=== PATIENT | female | born 2005 | race Caucasian/White ===

== ENCOUNTER 2025-07-19 13:17 | Emergency (ER) | payer OTHER, SELFPAY ==
--- NOTE | ~2025-07-19 | XR_ITS ---
EXAMINATION: XR WRIST 3 OR MORE VIEWS RIGHT HISTORY: old fracture check fracture COMPARISON: There are no prior studies available for comparison. FINDINGS: Four casted views of the right wrist are submitted. The fiberglass cast obscures fine bony detail. No definite fracture is seen, although evaluation is extremely limited due to the overlying cast material. The joint spaces are preserved. The soft tissues are unremarkable. XR/XR wrist RT min 3V IMPRESSION: No definite fracture is seen, although evaluation is extremely limited by the overlying cast material. Electronically signed by: Emmett Hu MD 07/19/2025 02:42 PM EDT
[2025-07-19 14:09] VITALS: BP 109/73; PULSE 79; RESP 18; TEMP 36.5; O2SAT 100; BMI 18.5
--- NOTE | 2025-07-19 14:09 | ED_ITS ---
HPI - Extremity Injury (Upper) General Chief Complaint: Extremity Injury, Upper Stated Complaint: needs wrist xray Time Seen by Provider: 07/19/25 17:48 Source: patient, RN notes reviewed and old records reviewed Mode of arrival: ambulatory Limitations: no limitations History of Present Illness ED Provider: Janak NATARAJAN narrative: 20-year-old female presents for evaluation of a wrist injury. The patient reports that she fractured her right wrist in March She reports being diagnosed with a scaphoid fracture. She had a cast placed the following day and then went to [facility] for an marketing operations intern ship. She returned and is still wearing the cast that she has had for the last 11 weeks She called Orthopedics who referred her to get a repeat x-ray and she will be seen in the office Denies any complaints or concerns, she has no pain and no further injuries Related Data Allergies Allergy/AdvReac Type Severity Reaction Status Date / Time amoxicillin Allergy Rash Verified 07/19/25 14:10 Penicillins (PCN) Allergy Rash Verified 07/19/25 14:10 Review of Systems Constitutional: Constitutional: Denies chills, Denies fever(s) and Denies headache(s) ENT: Denies headache(s) Musculoskeletal: Musculoskeletal: Denies arthralgias, Denies joint swelling, Denies limited range of motion and Reports other (Cast on right wrist) Integumentary/Breasts: Skin/Breast: Denies wounds Neurologic: Denies headache(s) [facility] Social History Social History Advance Directives: No Advance Directives Information Provided: No Physical Exam Vital Signs: Vital Signs: Last Vital Signs Temp 97.7 F 07/19/25 14:09 Pulse 79 07/19/25 14:09 Resp 18 07/19/25 14:09 BP 109/73 07/19/25 14:09 Pulse Ox 100 07/19/25 14:09 O2 Del Method Room Air 07/19/25 14:09 BMI result Body Mass Index 18.5 Const: General: healthy appearing, comfortable, no acute distress, alert and awake Nutritional Appearance: well nourished Orientation/consciousness: patient oriented x3 HEENT: Head: Yes normocephalic and Yes atraumatic Neck: Neck: Yes full ROM Resp: Effort & Inspection: normal respiratory effort, able to speak in complete sentences and not labored Skin: General skin exam: elasticity normal Neuro: General: patient oriented x3 Cranial nerves: Yes Bilaterally intact EOM present Cognition (Neuro): normal cognition Extrem: Other: There is a thumb spica cast to the right upper extremity. The patient is able to wiggle all digits of the right hand except for the thumb. No discoloration noted Course Course Course Narrative: This is an RME: Additional HPI, ROS, PE not included below will be deferred to primary provider. RME assessment and note performed by: Mahi Bolaños PA-C This is a [id number]-female, with a history of scaphoid fracture, who presents emergency department for repeat x-ray of her wrist. Patient reports that she fractured her scaphoid 11 weeks ago and then went to [facility]. Reports that she was told to have repeat imaging over there. They are attempting to obtain records however in the meantime she needs to see orthopedics here to have the cast removed however [facility] advised her to come to the emergency room for repeat x-rays. Plan: xray Medical Decision Making Medical Decision Making MDM Narrative: 20-year-old female presents for evaluation of follow up to a right wrist injury. Her x-ray today shows no obvious fracture but the x-ray is obscured due to the overlying fiberglass cast. The patient is already working on getting follow up with Orthopedics. She will call in the morning to schedule follow up as she was instructed to call after her x-ray was performed. Differential Diagnosis Differential Diagnoses: The differential diagnosis associated with the presentation includes Scaphoid fracture Wrist sprain Contusion Wrist fracture Independent Interpretation I performed an independent interpretation of an: Plain X-Ray (Agree with Radiology interpretation, no obvious fracture) Radiology Impression Discussion of test interpretation with radiology: I have reviewed the radiologist's reading. Radiologist Impression: Ordering Physician: Generic ED Physician Date of Service: 07/19/25 Procedure(s): XR wrist RT min 3V Accession Number(s): [id number] cc: Generic ED Physician; Physician,Unknown ~ Reason for Exam: old fracture check fracture EXAMINATION: XR WRIST 3 OR MORE VIEWS RIGHT HISTORY: old fracture check fracture COMPARISON: There are no prior studies available for comparison. FINDINGS: Four casted views of the right wrist are submitted. The fiberglass cast obscures fine bony detail. No definite fracture is seen, although evaluation is extremely limited due to the overlying cast material. The joint spaces are preserved. The soft tissues are unremarkable. XR/XR wrist RT min 3V IMPRESSION: No definite fracture is seen, although evaluation is extremely limited by the overlying cast material. Electronically signed by: Emmett Hu MD 07/19/2025 02:42 PM EDT Discharge Plan Discharge Clinical Impression: Injury of right wrist Patient Disposition: Home, Self-Care Instructions: Scaphoid Fracture (ED) Additional Instructions: Your x-ray today does not show any definitive fracture, however small details can be obscured by the overlying cast. Call orthopedics tomorrow to schedule your follow-up appointment Return for new or worsening symptoms Ordering Physician: Generic ED Physician Date of Service: 07/19/25 Procedure(s): XR wrist RT min 3V Accession Number(s): [id number] cc: Generic ED Physician; Physician,Unknown ~ Reason for Exam: old fracture check fracture EXAMINATION: XR WRIST 3 OR MORE VIEWS RIGHT HISTORY: old fracture check fracture COMPARISON: There are no prior studies available for comparison. FINDINGS: Four casted views of the right wrist are submitted. The fiberglass cast obscures fine bony detail. No definite fracture is seen, although evaluation is extremely limited due to the overlying cast material. The joint spaces are preserved. The soft tissues are unremarkable. XR/XR wrist RT min 3V IMPRESSION: No definite fracture is seen, although evaluation is extremely limited by the overlying cast material. Electronically signed by: Emmett Hu MD 07/19/2025 02:42 PM EDT Referrals: [facility] [place] Orthopedic Surgeons [Provider Group] Referral Note: old scaphoid fracture Print Language: Kosovan
--- OUTSIDE RECORDS SUMMARY | 2025-07-19 17:51 | XMS_ITS | Encounter Summary ---
Author Organization [facility] iance Address [address] [place] [address] Care Team Providers Care Title Checker Name Role Phone Genesis Courtney MD Primary Care Provider [phone] Genesis Courtney MD Unavailable [phone] Reason for Visit * Reason Onset Date Comments Imm/Inj 03/25/2025 Encounter Details Date Type Department Care Team (Late st Contact Info) Description 03/25/2025 Telephone [facility] [place] [address] Genesis Courtney MD [address] [place] [id number] Imm/Inj Social History Tobacco Use Types Packs/Day Years Used Date Smoking Tobacco: Never Smokeless Tobacco: Never Alcohol Use Standard Drinks/Week Comments Never 0 (1 standard drink = 0.6 oz pur e alcohol) Comments Unknown Sex and Gender Information Value Date Recorded Sex Assigned at Not on file Legal Sex Female 8:01 PM EDT Gender Identity Other 03/22/2025 11:14 AM EDT Sexual Orientation Choose not to disclose 2024 11:14 AM EDT documented as of this encounter Miscellaneous Notes * Telephone Encounter - Tiffanie Lee Ann - 03/25/2025 1:36 PM EDT Central Refill Department to complete a benefit analysis for the TDAP Vaccine. The vaccine is covered under the patient???s [facility] medical coverage. Please choose Private documented in this encounter Plan of Treatment Not on file documented as of this encounter Visit Diagnoses Not on filedocumented in this encounter Care Teams Title Checker Relationship Specialty Start Date End Date Genesis Courtney MD [address] [facility] [place] [address] PCP - General 01/26/09 Genesis Courtney MD [address] [facility] [place] [address] PCP - Insurance PCP 05/01/18 documented as of this encounter
--- OUTSIDE RECORDS SUMMARY | 2025-07-19 17:51 | XMS_ITS | Clinical Summary ---
Author Organization [email or web address] [facility] Address [address] [place] [address] Care Team Providers Care Circulation Assistant Name Role Phone Unavailable Primary Care Provider Unavailabl e Social History Tobacco Use Types Packs/Day Years Used Date Smoking Tobacco: Never Assessed Comments Unknown Sex and Gender Information Value Date Recorded Sex Assigned at Not on file Legal Sex Female 12:30 PM EST Gender Identity Not on file Sexual Orientation Not on file Plan of Treatment Health Maintenance Due Date Last Done Comments Depression: Screening Annual ly using PHQ-2/9 in Adults 18 yrs or above (or HM Modifier)([facility]) 2022 Hepatitis C Virus Infection in Adolescents and Adults: Screening (or Modifier) ([facility]) 2022 SDOH Screening Reminder: Ayla cabrera for all adults ([facility]) 2022 Tobacco Smoking Cessation: i n Adults excluding Women: Behavioral and Pharmacotherapy Interventions ([facility]) 2022 DTaP/Tdap/Td Vaccines ([facility]) (1 - Tdap) 2023 Cervical Cancer Screenin 1-65 yrs of age (or Modifier) 2025 Cervical Cancer Screening: P ap every 3 yrs pts age 21-65 2025 Cervical Cancer: Pap Screeni ng with Modifier timing ([facility]) 2025 Cervical Cancer: hrHPV alone or with cotesting Pap for Pts 30-65yrs screening every 5yrs ([facility]) 2025 Flu Vaccination: Yearly for ages 18mos through 64 years (or Modifier)([facility]) 05/20/2025 COVID-19 Vaccine Screening: Initial Series and Booster Status ([facility]) (2023- season) 2025 Zoster/Shingles Vaccine Seri es Screening: Adults aged 18+ yrs (or HM Modifiers)([facility]) (1 of 2) 2054 Pneumococcal Vaccination Scr eening: Pts 0-19 & 19-49 yrs of age ([facility]) Aged Out No longer eligible based on patient's age to complete this topic Medical Devices Not on file Insurance [facility]
--- OUTSIDE RECORDS SUMMARY | 2025-07-19 17:51 | XMS_ITS | Encounter Summary ---
Author Organization [facility] iance Address [address] [place] [address] Care Team Providers Care Dag Sprayer Name Role Phone Genesis Courtney MD Primary Care Provider [phone] Genesis Courtney MD Unavailable [phone] Reason for Visit * Reason Comments Other Mom send via fax on 10/21/18 verification of caring for the disabled Encounter Details Date Type Department Care Team (Latest Contact Info) Description 10/21/2018 Brief Documentation [facility] [address] [place] [address] Mikayla Nolasco Other (Mom send via fax on 10/21/18 verifi... Social History Tobacco Use Types Packs/Day Years Used Date Smoking Tobacco: Never Smokeless Tobacco: Never Alcohol Use Standard Drinks/Week Comments Not Asked 0 (1 standard drink = 0.6 oz pur e alcohol) Comments Unknown Sex and Gender Information Value Date Recorded Sex Assigned at Not on file Legal Sex Female 8:01 PM EDT Gender Identity Other 03/22/2025 11:14 AM EDT Sexual Orientation Choose not to disclose 2024 11:14 AM EDT documented as of this encounter Plan of Treatment Not on file documented as of this encounter Visit Diagnoses Not on filedocumented in this encounter Care Teams Dag Sprayer Relationship Specialty Start Date End Date Genesis Courtney MD [address] [place], [place] [id number] PCP - General 01/26/09 Genesis Courtney MD [address] [facility] [place] [address] PCP - Insurance PCP 05/01/18 documented as of this encounter
--- OUTSIDE RECORDS SUMMARY | 2025-07-19 17:51 | XMS_ITS | Clinical Summary ---
Author Organization [facility] Address [address] [address] [place] [phone] Phone Care Team Providers Care Commercial Credit Officer Name Role Phone Genesis Courtney MD Primary Care Provide r Allergies Active Allergy Reactions Criticality Noted Date Comments Penicillins Rash Low 05/02/2021 Social History Tobacco Use Types Packs/Day Years Used Date Smoking Tobacco: Never Assessed Education Answer Date Recorded Are you interested in more education? Not on julia e 02/14/2023 Are you concerned about learning? Not on file 02/14/2023 No 02/14/2023 No 02/14/2023 Digital Access Answer Date Recorded No 03/17/2023 No 03/17/2023 No 03/17/2023 Reliable internet access at home? Not on file 03/17/2023 Device with a working camera? Not on file Comments Unknown Sex and Gender Information Value Date Recorded Sex Assigned at Not on file Legal Sex Female 2:15 PM EDT Gender Identity Not on file Sexual Orientation Not on file Last Filed Vital Signs Vital Sign Reading Time Taken Comments Blood Pressure 111/73 05/02/2021 1:57 PM EDT Pulse 107 05/02/2021 1:57 PM EDT Temperature - - Respiratory Rate - - Oxygen Saturation 97% 05/02/2021 1:57 PM EDT Inhaled Oxygen Concentration - - Weight 46.9 kg (103 lb 6.3 oz) 05/02/2021 1:57 P M EDT Height 162 cm (5' 3.78 ) 05/02/2021 1:57 PM EDT Body Mass Index 17.87 05/02/2021 1:57 PM EDT Plan of Treatment Health Maintenance Due Date Last Done Comments DEPRESSION SCREENING 2016 SMOKING Hx and SMOKELESS TOBACCO SCREENING 2017 CHLAMYDIA SCREENING 2020 MENINGOCOCCAL VACCINES (B) (1 of 2 - Standard) 2020 ADOLESCENT UNIVERSAL LIPID SCREENING 2021 HEPATITIS C SCREENING 2022 HIV ONE-TIME SCREENING (18-65 YEARS) 2022 COVID-19 VACCINE ( - season) 2024 03/13/2021, 02/20/2021 PAP SMEAR 2025 INFLUENZA VACCINE (#1) 2025 , 08/03/2019, 08/03/2011 Adult Td,Tdap Booster 06/06/2025 06/06/2015 COMBINED DTaP,Tdap,Td (7 - Td or Tdap) 06/06/2025 06/06/2015, 05/20/2008, 12/25/2005, Additional history exists PNEUMOCOCCAL VACCINES (0-49 years) Aged Out 05/10/2005, 02/15/2005, 2004, Additional history exists No longer eligible based on patient's age to complete this topic HIB VACCINES Completed 12/25/2005, 01/19, 2004, Additional history exists HEPATITIS A VACCINES Completed 06/19/2017, 06/12/20 16 MMR VACCINES Completed 06/19/2017, 06/21, 12/17/2005 HPV VACCINES Completed 12/18/2018, 06/18/2018 MENINGOCOCCAL VACCINES ([facility]) Completed 11/22/2020, 06/27/2015 Medical Devices Not on file Insurance [facility] [employer] [facility] [employer] Care Teams Commercial Credit Officer Relationship Specialty Start Date End Date Genesis Courtney MD [facility] [facility] [place] [address] PCP - General Pediatrics 04/04/21 Additional Source Comments The information contained in this document represents components of the legal health record. It is not the complete legal health record.[facility]
--- OUTSIDE RECORDS SUMMARY | 2025-07-19 17:51 | XMS_ITS | Encounter Summary ---
Author Organization [facility] iance Address [address] [place] [address] Care Team Providers Care Housing Liaison Name Role Phone Genesis Courtney MD Primary Care Provider [phone] Genesis Courtney MD Unavailable [phone] Reason for Visit * Reason Comments Form Request verification for car ing for the disabled Encounter Details Date Type Department Care Team (Latest Contact Info) Description 10/22/2019 Brief Documentation Enc [facility] [place] [address] Teri Anderson(Inactive) Form Request (verification for caring for ... Social History Tobacco Use Types Packs/Day Years [...] on filedocumented in this encounter Care Teams Housing Liaison Relationship Specialty Start Date End Date Genesis Courtney MD [address] [place] [phone] PCP - General 01/26/09 Genesis Courtney MD [facility] [facility] [place] [address] PCP - Insurance PCP 05/01/18 documented as of this encounter
--- OUTSIDE RECORDS SUMMARY | 2025-07-19 17:51 | XMS_ITS | Clinical Summary ---
Author Organization [facility] iance Address [address] [facility] [place] [address] Care Team Providers Care Food And Beverage Assistant Name Role Phone Genesis Courtney MD Primary Care Provider Genesis Courtney MD Unavailable [phone] Allergies Active Allergy Reactions Criticality Noted Date Comments Amoxicillin Rash Medium 10/02/2010 Medications No known medications Active Problems Problem Noted Date Diagnosed Date Injury of right wrist 05/02/2025 Assessment & Plan (05/02/2025 8:21 PM EDT): Patient is presenting 1 day s/p FOOSH with worsening pain to R wrist along the ulnar border. [] R wrist XR > Hairline lucency scaphoid waist may be incidental trabeculation pattern, though if there is concern for scaphoid fracture, consider MRI. [] Urgent evaluation by orthopedic surgery - really appreciate care of patient prior to trip tomorrow! Patient transported to orthopedic clinic. Facial laceration 05/02/2025 Assessment & Plan (05/02/2025 8:17 PM EDT): Laceration to left eyebrow, c/d/I with steri strips intact. TDAP UTD. Too late for Dermabond. Will likely heal by secondary intention. Wears glasses 05/08/2012 Family conflict 06/21/2009 Overview (05/31/2014): 05/31/14: Parents . Sees counselor at [place], weekly sessions. [facility] Linda Zuluaga, Mental Health Counselor. Resolved Problems Problem Noted Date Diagnosed Date Resolved Date Problems related to inapprop riate diet and eating habits 12/13/2015 06/18/2018 Underimmunization status 06/06/2015 Overview (06/06/2015): Will return on June 27, 2015 for Menactra. Will schedule for Hep A and HPV at that time. Needs booster MMR, dose 2 not valid 06/02/2015 06/18/2018 Backache 01/09/2014 06/18/2018 Tonsillitis 01/06/2012 06/19/2017 Other behavioral problems 05/30/2008 Overview (05/30/2008): Uncooperative at times. Esophageal reflux 04/15/2008 01/26/2009 Feeding difficulties and mismanagement 12/17/2005 09/25/2010 Overview (12/17/2005): Does not tolerate whole foods, prefers puree. Encounters Date Type Department Care Team Description 05/03/2025 Telephone [facility] [address] [place] [address] Beatris Collins E Letter 05/02/2025 3:00 PM EDT Office Visit [facility] [place] [address] Rimma Dyer MD Closed nondisplaced fracture of middle third of scaphoid bone, unspecified laterality, initial encounter (Primary Dx) 05/02/2025 1:25 PM EDT - 05/02/2025 11:59 PM EDT Hospital Encounter [facility] [place] [address] Injury of right wrist, initial encounter Discharge Disposition: Home 05/02/2025 1:00 PM EDT Office Visit [facility] [address] [place] [address] Ngozi Woodson MD Injury of right wrist, initial encounter (Primary Dx); Facial laceration, initial encounter 05/02/2025 Travel 05/02/2025 Nurse Triage [facility] [address] [place] [address] Laureen Campos RN Wrist/forearm Injury 04/29/2025 10:41 AM EDT - 04/29/2025 11:59 PM EDT Hospital Encounter [facility] Lab - [facility] [address] [place] [address] Routine general medical examination at a health care facility Discharge Disposition: Home 04/29/2025 10:40 AM EDT Office Visit [facility] [address] [place] [address] Odessa Dietz APRN Routine general medical examination at a health care facility (Primary Dx); Marijuana use; Routine screening for STI (sexually transmitted infection) 04/29/2025 Results Follow-Up [facility] [address] [place] [address] Odessa Dietz APRN 04/29/2025 Telephone [facility] [address] [place] [address] Beatris Collins E Well Child 04/29/2025 Travel 04/28/2025 Brief Documentation Enc [facility] [address] [place] [address] Guicho Wheat Confirming Appointment from Last 3 Months Immunizations Immunization Administration Dates Next Due DTAP/HIB 12/25/2005 DTaP age 2 MO to <7 Yrs 05/20/2008,2004 DTaP-HEP B-IPV AGE 6WKS - <7YRS 01/29/2005,07/02 HIB 4 Dose Schedule (PRP-T) 02/07/2005, 4,2004 HPV-9 12/18/2018,06/18/2018 12/17/2018 Hep A Pedi/Adolescent 2 Doses AGE 0806/19/2017, Hep B Pedi/Adol 3 Dose Less than age 20 2004 Hib (Hboc) 02/07/2005,2004,2004 INFLUENZA VIRUS VAC QUAD AMRIK E INTRANASAL 2-<50YRS 08/03/2011 IPV 06/01/2008,2004 Influenza Virus Quad Presv F ree Vacc 6 Mo and Older, IM 02/06/2022,10/09/2020,08/03/2019 MMR 06/19/2017,07/12/2008,12/17/2005 Menactra (Meningococcal) 11/22/2020,06/27/2015 Pneumococcal Vaccine, Conjugate V7 05/10,02/15/2005,2004,07/02 Tdap 03/28/2025 Tdap (adacel) 06/06/2015 Varivax (chicken pox vaccine) 07/05/2008, 005 Family History Medical History Relation Comments No Known Family History Unknown Relation Status Comments Unknown Social History Tobacco Use Types Packs/Day Years [...] not to disclose 2024 11:14 AM EDT Last Filed Vital Signs Vital Sign Reading Time Taken Comments Blood Pressure 114/71 04/29/2025 10:52 AM EDT Pulse 82 03/30/2021 3:39 PM EDT Temperature 36.6 C (97.9 F) 05/02/2025 1:02 PM EDT Respiratory Rate - - Oxygen Saturation 100% 03/30/2021 3:39 PM EDT Inhaled Oxygen Concentration - - Weight 45.6 kg (100 lb 9.6 oz) 05/02/2025 1:02 P M EDT Height 162 cm (5' 3.78 ) 04/29/2025 10:52 AM EDT Body Mass Index 17.39 04/29/2025 10:52 AM EDT Plan of Treatment Health Maintenance Due Date Last Done Comments Contraceptive Care Screening 2004 HIV SCREENING 2017 MENINGOCOCCAL B VACCINE SERIES (1 of 2 - Standard) 2020 HEP C SCREEN 2022 COVID-19 Vaccine ( season) 2025 11/01/2021, 03/13/2021, 02/20/2021 INFLUENZA VACCINE (#1) 2025 , 10/09/2020, 08/03/2019, Additional history exists CHLAMYDIA SCREEN 04/29/2026 04/29/2025, 02/06/2022 PHYSICAL EXAM 04/29/2026 04/29/2025, 04/, 11/14/2020, Additional history exists SDOH Screening 04/29/2026 04/29/2025 AWQ Questionnaire 05/02/2026 05/02/2025, 04/29/2025 ORAL HEALTH SCREENING 05/03/2026 05/03/2025 , 05/03/2025, 05/02/2025, Additional history exists PAP SMEAR 04/29/2028 04/29/2025 HEALTH CARE PROXY 04/29/2030 04/29/2025 LIPID SCREENING 04/29/2030 04/29/2025, 05/31/2014 TETANUS VACCINE (8 - Td or Tdap) 03/28/2035 03/28/2025, 06/06/2015, 05/20/2008, Additional history exists ZOSTER VACCINE (1 of 2) 2054 PNEUMOCOCCAL VACCINE SERIES (< 65) Aged Out 05/10/2005, 02/15/2005, 2004, Additional history exists No longer eligible based on patient's age to complete this topic HPV VACCINE SERIES Addressed 12/18/2018, 0 06/18/2018, 06/19/2017 (Discussed/Declined (reset due date to next due date per frequency)) Overridden with the intention of not completing the topic Procedures Procedure Name Priority Date/Time Associated Diagnosis Comments CLTX CARPAL BONE FX W/O MANJ EACH BONE Routine 05/13/2025 12:17 PM EDT Closed nondisplaced fracture of middle third of scaphoid bone, unspecified laterality, initial encounter XR WRIST RIGHT MINIMUM 3 VIEWS Urgent 05/02/2025 1:48 PM EDT Injury of right wrist, initial encounter HC HPV Routine 04/29/2025 12:54 PM EDT Routine general medical examination at a health care facility Routine screening for STI (sexually transmitted infection) CHLAMYDIA GC NAAT Routine 04/29/2025 12: 00 PM EDT Routine screening for STI (sexually transmitted infection) HC LIPID PANEL Routine 04/29/2025 11:56 AM EDT Routine general medical examination at a health care facility CYTOPATH, C/V, THIN LAYER Routine 04/29/2025 12:00 AM EDT Routine general medical examination at a health care facility Routine screening for STI (sexually transmitted infection) from Last 3 Months Results * XR Wrist Right minimum 3 views (05/02/2025 1:48 PM EDT) Anatomical Region Laterality Modality Upper Extremities Digital Radiog sandro 05/02/2025 2:16 PM EDT Impressions 05/02/2025 2:20 PM EDT Hairline lucency scaphoid waist may be incidental trabeculation pattern, though if there is concern for scaphoid fracture, consider MRI. Results flagged in epic. Reviewed and Electronically Signed By: Darryl Baez MD Signed Date and Time: 05/02/2025 2:20 PM Narrative 05/02/2025 2:20 PM EDT Exam: Right wrist, 3 views Indication: pain s/p fall, concerned about fracture Comparison: none Findings: Bones and Joints: Hairline lucency scaphoid waist. Bones and joints are otherwise unremarkable. Soft Tissues: Unremarkable. Procedure Note Darryl Baez MD - 05/02/2025 Exam: Right wrist, 3 views Indication: pain s/p fall, concerned about fracture Comparison: none Findings: Bones and Joints: Hairline lucency scaphoid waist. Bones and joints areotherwise unremarkable. Soft Tissues: Unremarkable. IMPRESSION: Hairline lucency scaphoid waist may be incidental trabeculation pattern,though if there is concern for scaphoid fracture, consider MRI. Results flagged in epic. Reviewed and Electronically Signed By: Darryl Baez MD Signed Date and Time: 05/02/2025 2:20 PM us Ngozi Woodson MD RAD XR ORDERABLES Final Resul t * HUMAN PAPILLOMAVIRUS (HPV) (04/29/2025 12:54 PM EDT) HUMAN PAPILLOMAVIRUS Negative for HPV High Risk mRNA (HPV types: 16,18,31,33, 35,39,45,51, 52,56,58,59, 66,68) [facility] THINPREP CYTOLOGY TECHNIQUE / Unknown 04/29/2025 12:54 PM EDT 04/29/2025 9:36 PM EDT us Odessa Dietz FORENSIC BALLISTICS EXPERT [place]CRO[place] [address], [place] * CHLAMYDIA GC NAAT (04/29/2025 12:00 PM EDT) NEISSERIA GONORRHOEAE NAAT Negative for Neisseria gonorrhoeae rRNA. [facility] CHLAMYDIA TRACHOMATIS NAAT Negative for Chlamydia trachomatis rRNA. [facility] URINE SPECIMEN / Unknown 04/29/2025 12:00 PM EDT 04/29/2025 1:51 PM EDT us Odessa Dietz FORENSIC BALLISTICS EXPERT MICROBIOLOGY Final Result Performing Organization Address City/[facility]/ZIP Co de Phone Number [address] [address], [place] * Lipid Panel (04/29/2025 11:56 AM EDT) Cholesterol 180 0 - 239 mg/dL [facility] TRIGLYCERIDES 62 0 - 150 mg/dL [facility] HIGH DENSITY LIPOPROTEIN 81 40 - 60 mg/dL [facility] LABORATORY [facility] LOW DENSITY LIPOPROTEIN DIRECT 101 0 - 189 mg/dL [facility] 04/29/2025 11:5 6 AM EDT 04/29/2025 1:09 PM EDT us Odessa Dietz FORENSIC BALLISTICS EXPERT LABORATORY Final Result [address] [address], [place] * CYTOPATH, C/V, THIN LAYER (04/29/2025 12:00 AM EDT) PATHOLOGY REPORT SPEC #: [id number] RECD: 04/29/25 STATUS: SOUCami SP TYPE: ELECTRON MICROSCOPIST RENEE: 04/29/25- SUB DR: KARRI DIETZ FORENSIC BALLISTICS EXPERT ENTERED: 04/29/25 ORDERED: [id number] Performed at [place] [address] >>FINAL DIAGNOSIS<< ENDOCERVIX/EXOCERV IX (THINPREP PAP): NEGATIVE FOR INTRAEPITHELIAL LESION OR MALIGNANCY. SATISFACTORY FOR EVALUATION, TRANSFORMATION ZONE COMPONENT IS PRESENT. The Pap smear is a screening test in which both false positive and false negative results can occur. Thus, it should not be the sole means to diagnosis or exclude malignancy or a premalignant condition. Diagnosis by: KENDRICK NOGUEIRA CTASCP Cytology patient information Cancer screening? Y ThinPrep ONLY? Y Number of slides? 1 Clinical diagnosis? SCREENING PAP First day LMP? 03/31/25 Regular cycle? Y Current ELECTRON MICROSCOPIST exam? VAGINITIS Reason for PAP: SCREENING Patient insurance: Screened by: [employer] screener name: Kendrick Nogueira CT(ASCP) PATH PROCEDURES CYTOPATHOLOGY CERVICAL OR VAGINAL, THIN PREP TC ONLY Signed (signatu re on file) KENDRICK NOGUEIRA CTASCP 05/03/25 -- Endocervix/Exocer vix 04/29/2025 04/29/2025 8:50 PM EDT Odessa Dietz FORENSIC BALLISTICS EXPERT PATHOLOGY Final Result from Last 3 Months Insurance [facility] Advance Directives Documents on File Type Date Recorded Patient Belt Molder Expl anation HC PROXY 04/29/2025 12:15 PM HC Proxy * No Code Status (Latest Code Status on File) Date Activated Date Inactivated Comments 2004 10:54 AM 2004 11:54 AM Care Teams Food And Beverage Assistant Relationship Specialty Start Date End Date Genesis Courtney MD [address] [place] [id number] PCP - General 01/26/09 Genesis Courtney MD [address] [place] [id number] PCP - Insurance PCP 05/01/18
--- OUTSIDE RECORDS SUMMARY | 2025-07-19 17:51 | XMS_ITS | Clinical Summary ---
Author Organization [facility]ated within [facility] Address [address] [place] [address] Care Team Providers Care Attending Physician Name Role Phone Unavailable Primary Care Provider Unavailabl e Allergies Active Allergy Reactions Criticality Noted Date Comments Penicillin G 01/09/2014 Hives Medications Dicyclomine HCl 20 MG Tablet Take 1 Tablet by mouth 4 (four) times a day (with meals and nightly) 20 Tablet 1 11/23/2021 Active Active Problems Problem Noted Date Diagnosed Date Back pain 01/09/2014 Social History Tobacco Use Types Packs/Day Years Used Date Smoking Tobacco: Never Assessed Comments Unknown Sex and Gender Information Value Date Recorded Sex Assigned at Not on file Legal Sex Female 11:16 PM EDT Gender Identity Not on file Sexual Orientation Not on file Last Filed Vital Signs Vital Sign Reading Time Taken Comments Blood Pressure 118/76 11/23/2021 10:04 PM EST Pulse 74 11/23/2021 10:04 PM EST Temperature 36.6 C (97.9 F) 11/23/2021 10:04 PM EST Respiratory Rate 18 11/23/2021 10:04 PM EST Oxygen Saturation 100% 11/23/2021 10:04 PM EST Inhaled Oxygen Concentration - - Weight 47 kg (103 lb 9.9 oz) 11/23/2021 10:03 PM EST Height - - Body Mass Index - - Plan of Treatment Health Maintenance Due Date Last Done Comments Family Planning Screening (Annual) 2004 MMR VACCINES (1 of 1 - Standard series) 2005 PHQ2 Annual Screen 2016 HIV Screening 2017 VARICELLA VACCINES (1 of 2 - 13+ 2-dose series) 2017 HPV VACCINES (1 - 3-dose series) 2019 Hepatitis C Screening 2022 HEPATITIS B VACCINES (1 of 3 - 19+ 3-dose series) 2023 Chlamydia Annual Screen 10/20/2024 LDL Only testing 2025 PAP SMEAR 2025 Influenza Vaccine (#1) 2025 , 08/03/2019, 08/03/2011 DTAP/TDAP/TD VACCINES (7 - Td or Tdap) 06/06/2025 06/06/2015, 05/20/2008, 12/25/2005, Additional history exists COVID-19 Vaccine (2024- season) 2025 11/01/2021, 03/13/2021, 02/20/2021 Shingrix Vaccine (1 of 2) 2054 HEPATITIS A VACCINES Aged Out No long er eligible based on patient's age to complete this topic MENINGOCOCCAL VACCINE Aged Out No familia ciara eligible based on patient's age to complete this topic Pneumococcal Vaccine Aged Out No long er eligible based on patient's age to complete this topic Insurance [facility] [employer] PLANS
--- NOTE | 2025-07-19 18:05 | PC.NURSE ---
PT WAS SEEN BY PROVIDER IN [facility]. AWARE OF RECOMMENDED FOLLOW UP WITH ORTHO
[2025-07-19 18:06] VITALS: BP 109/73; PULSE 79; RESP 18; TEMP 36.5; O2SAT 100
== END 2025-07-19 18:08 | disposition home or self-care (01) ==
PROVIDERS: Emergency Provider Emergency Medicine
DX: S69.91XA Unspecified injury of right wrist, hand and finger(s), initial encounter (principal); X58.XXXA Exposure to other specified factors, initial encounter; Y93.9 Activity, unspecified; Y92.9 Unspecified place or not applicable
CPT/HCPCS: 73110; 99282; 99283

== ENCOUNTER → 2025-07-19 14:35 | Outpatient (BNV) | payer OTHER, SELFPAY | PROVIDERS: Visit Provider Radiology Diagnostic Radiology | DX: S69.91XA Unspecified injury of right wrist, hand and finger(s), initial encounter (principal) | CPT/HCPCS: 73110 ==

== ENCOUNTER 2025-07-27 08:05 | Outpatient (REF) | payer OTHER, SELFPAY ==
--- NOTE | ~2025-07-27 | XR_ITS ---
EXAMINATION: XR WRIST, RIGHT CLINICAL INFORMATION: M25.531 - Pain in right wrist COMPARISON: None available. TECHNIQUE: PA, lateral, and oblique views of the right wrist. FINDINGS: Cast has been removed since the prior study. No fracture or deformity is identified. No callus is seen. There is no joint diastases. 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 XR/XR wrist RT min 3V IMPRESSION: Unremarkable right wrist. Electronically signed by: Joseph Rod MD 07/27/2025 11:48 AM EDT
--- OUTSIDE RECORDS SUMMARY | 2025-07-27 08:14 | XMS_ITS | Encounter Summary ---
Author Organization [facility] iance Address [address] [place] [address] Care Team Providers Care Aviation Medicine Specialist Name Role Phone Genesis Courtney MD Primary Care Provider [phone] Genesis Courtney MD Unavailable [phone] Reason for Visit * Reason Comments Form Request verification for car ing for the disabled Encounter Details Date Type Department Care Team (Latest Contact Info) Description 10/22/2019 Brief Documentation Enc [facility] [place] [address] Teri Anderson(Inactive) Form Request (verification for caring [...] on filedocumented in this encounter Care Teams Aviation Medicine Specialist Relationship Specialty Start Date End Date Genesis Courtney MD [address] [place] [id number] PCP - General 01/26/09 Genesis Courtney MD [facility] [place] [address] PCP - Insurance PCP 05/01/18 documented as of this encounter
--- OUTSIDE RECORDS SUMMARY | 2025-07-27 08:14 | XMS_ITS | Encounter Summary ---
Author Organization [facility] iance Address [address] [place] [address] Care Team Providers Care Premium Service Representative Name Role Phone Genesis Courtney MD Primary Care Provider [phone] Genesis Courtney MD Unavailable [phone] Reason for Visit * Reason Comments Other Mom send via fax on 10/21/18 verification of caring for the disabled Encounter Details Date Type Department Care Team (Latest Contact Info) Description 10/21/2018 Brief Documentation [facility] [address] [place] [address] Mikayla Nolasco Other (Mom send via fax [...] on filedocumented in this encounter Care Teams Premium Service Representative Relationship Specialty Start Date End Date Genesis Courtney MD [address] [place], [place] [id number] PCP - General 01/26/09 Genesis Courtney MD [address] [facility] [place] [address] PCP - Insurance PCP 05/01/18 documented as of this encounter
--- OUTSIDE RECORDS SUMMARY | 2025-07-27 08:14 | XMS_ITS | Clinical Summary ---
Author Organization [facility] iance Address [address] [facility] [place] [address] Care Team Providers Care Pinked Edge Sewing Machine Operator Name Role Phone Genesis Courtney MD Primary Care Provider Genesis Courtney MD Unavailable [phone] Allergies Active Allergy Reactions Criticality Noted Date [...] (05/31/2014): 05/31/14: Parents . Sees counselor at [place], weekly sessions. [facility] Linda [...] Type Department Care Team Description 05/03/2025 Telephone [facility] [address] [place] [address] Beatris Collins E Letter 05/02/2025 3:00 PM EDT Office Visit [facility] [place] [address] Rimma Dyer MD Closed nondisplaced fracture of middle third of scaphoid bone, unspecified laterality, initial encounter (Primary Dx) 05/02/2025 1:25 PM EDT - 05/02/2025 11:59 PM EDT Hospital Encounter [facility] [place] [address] Injury of right wrist, initial encounter Discharge Disposition: Home 05/02/2025 1:00 PM EDT Office Visit [facility] [address] [place] [address] Ngozi Woodson MD Injury of right wrist, initial encounter (Primary Dx); Facial laceration, initial encounter 05/02/2025 Travel 05/02/2025 Nurse Triage [facility] [address] [place] [address] Laureen Campos RN Wrist/forearm Injury 04/29/2025 10:41 AM EDT - 04/29/2025 11:59 PM EDT Hospital Encounter [facility] Lab - [facility] [address] [place] [address] Routine general medical examination at a health care facility Discharge Disposition: Home 04/29/2025 10:40 AM EDT Office Visit [facility] [address] [place] [address] Odessa Dietz APRN Routine general medical examination at a health care facility (Primary Dx); Marijuana use; Routine screening for STI (sexually transmitted infection) 04/29/2025 Results Follow-Up [facility] [address] [place] [address] Odessa Dietz APRN 04/29/2025 Telephone [facility] [address] [place] [address] Beatris Collins E Well Child 04/29/2025 Travel 04/28/2025 Brief Documentation Enc [facility] [address] [place] [address] Guicho Wheat Confirming Appointment from Last 3 [...] mRNA (HPV types: 16,18,31,33, 35,39,45,51, 52,56,58,59, 66,68) [facility] THINPREP CYTOLOGY TECHNIQUE / Unknown 04/29/2025 12:54 PM EDT 04/29/2025 9:36 PM EDT us Odessa Dietz MEAL COOKER [place]CRO[place] [address], [place] * CHLAMYDIA GC NAAT (04/29/2025 12:00 PM EDT) NEISSERIA GONORRHOEAE NAAT Negative for Neisseria gonorrhoeae rRNA. [facility] CHLAMYDIA TRACHOMATIS NAAT Negative for Chlamydia trachomatis rRNA. [facility] URINE SPECIMEN / Unknown 04/29/2025 12:00 PM EDT 04/29/2025 1:51 PM EDT us Odessa Dietz MEAL COOKER MICROBIOLOGY Final Result Performing Organization Address City/[facility]/ZIP Co de Phone Number [address] [address], [place] * Lipid Panel (04/29/2025 11:56 AM EDT) Cholesterol 180 0 - 239 mg/dL [facility] TRIGLYCERIDES 62 0 - 150 mg/dL [facility] HIGH DENSITY LIPOPROTEIN 81 40 - 60 mg/dL [facility] LABORATORY [facility] LOW DENSITY LIPOPROTEIN DIRECT 101 0 - 189 mg/dL [facility] 04/29/2025 11:5 6 AM EDT 04/29/2025 1:09 PM EDT us Odessa Dietz ME[facility] COOKER LABORATORY Final Result [address] [address], [place] * CYTOPATH, C/V, THIN LAYER (04/29/2025 12:00 AM EDT) PATHOLOGY REPORT SPEC #: [id number] RECD: 04/29/25 STATUS: SOUCami SP TYPE: MANAGER PERIOPERATIVE RENEE: 04/29/25- SUB DR: KARRI DIETZ MEAL COOKER ENTERED: 04/29/25 ORDERED: [id number] Performed at [place] [address] >>FINAL DIAGNOSIS<< ENDOCERVIX/EXOCERV IX (THINPREP PAP): NEGATIVE [...] day LMP? 03/31/25 Regular cycle? Y Current MANAGER PERIOPERATIVE exam? VAGINITIS Reason for PAP: SCREENING Patient insurance: Screened by: [employer] screener name: Kendrick Nogueira CT(ASCP) PATH PROCEDURES CYTOPATHOLOGY CERVICAL OR VAGINAL, THIN PREP TC ONLY Signed (signatu re on file) KENDRICK NOGUEIRA CTASCP 05/03/25 -- Endocervix/Exocer vix 04/29/2025 04/29/2025 8:50 PM EDT Odessa Dietz MEAL COOKER PATHOLOGY Final Result from Last 3 Months Insurance [facility] Advance Directives Documents on File Type Date Recorded Patient Transit Driver Expl anation HC PROXY 04/29/2025 12:15 PM HC Proxy * No Code Status (Latest Code Status on File) Date Activated Date Inactivated Comments 2004 10:54 AM 2004 11:54 AM Care Teams Pinked Edge Sewing Machine Operator Relationship Specialty Start Date End Date Genesis Courtney MD [address] [place] [id number] PCP - General 01/26/09 Genesis Courtney MD [address] [place] [phone] PCP - Insurance PCP 05/01/18
--- OUTSIDE RECORDS SUMMARY | 2025-07-27 08:14 | XMS_ITS | Clinical Summary ---
Author Organization [facility] [employer] & [facility] linic Address [address] [facility] [address] [place] [address] Care Team Providers Care Corrugator Name Role Phone Unavailable Primary Care Provider [...] Adults 18 yrs or above (or HM Modifier)([facility]) 2022 Hepatitis C Virus Infection in Adolescents and Adults: Screening (or Modifier) ([facility]) 2022 SDOH Screening Reminder: Ayla cabrera for all adults ([facility]) 2022 Tobacco Smoking Cessation: i n Adults excluding Women: Behavioral and Pharmacotherapy Interventions ([facility]) 2022 DTaP/Tdap/Td Vaccines ([facility]) (1 - Tdap) 2023 Cervical Cancer Screenin 1-65 yrs of age (or Modifier) 2025 Cervical Cancer Screening: P ap every 3 yrs pts age 21-65 2025 Cervical Cancer: Pap Screeni ng with Modifier timing ([facility]) 2025 Cervical Cancer: hrHPV alone or with cotesting Pap for Pts 30-65yrs screening every 5yrs ([facility]) 2025 Flu Vaccination: Yearly for ages 18mos through 64 years (or Modifier)([facility]) 05/20/2025 COVID-19 Vaccine Screening: Initial Series and Booster Status ([facility]) (2023- season) 2025 Zoster/Shingles Vaccine Seri es Screening: Adults aged 18+ yrs (or HM Modifiers)([facility]) (1 of 2) 2054 Pneumococcal Vaccination Scr eening: Pts 0-19 & 19-49 yrs of age ([facility]) Aged Out No longer eligible based on patient's age to complete this topic Medical Devices Not on file Insurance [facility]
--- OUTSIDE RECORDS SUMMARY | 2025-07-27 08:14 | XMS_ITS | Encounter Summary ---
Author Organization [employer] [facility] iance Address [address] [place] [address] Care Team Providers Care Landmen Name Role Phone Genesis Courtney MD Primary Care Provider [phone] Genesis Courtney MD Unavailable [phone] Reason for Visit * Reason Onset Date Comments Imm/Inj 03/25/2025 Encounter Details Date Type Department Care Team (Late st Contact Info) Description 03/25/2025 Telephone [facility] Pediatric[facility] [place] [address] Genesis Courtney MD [address] [place] [id number] Imm/Inj Social History Tobacco Use Types Packs/Day [...] The vaccine is covered under the patient???s [facility] medical coverage. Please choose Private documented in this encounter Plan of Treatment Not on file documented as of this encounter Visit Diagnoses Not on filedocumented in this encounter Care Teams Landmen Relationship Specialty Start Date End Date Genesis Courtney MD [address] [facility] [address] PCP - General 01/26/09 Genesis Courtney MD [address] [facility] [address] PCP - Insurance PCP 05/01/18 documented as of this encounter
--- OUTSIDE RECORDS SUMMARY | 2025-07-27 08:15 | XMS_ITS | Clinical Summary ---
Author Organization [facility] ([facility]) Address [address] [place] [address] Care Team Providers Care Rewind Operator Name Role Phone Unavailable Primary Care Provider [...] patient's age to complete this topic Insurance [facility] [employer]
== END 2025-07-27 08:06 | disposition home or self-care (01) ==
LOC: HO.HOSX 08:05
PROVIDERS: Visit Provider Physician Assistant
DX: S69.91XA Unspecified injury of right wrist, hand and finger(s), initial encounter (principal); W19.XXXA Unspecified fall, initial encounter
CPT/HCPCS: 73110; 99202

== ENCOUNTER 2025-07-27 11:09 | Outpatient (AMB) | payer OTHER, SELFPAY ==
--- NOTE | 2025-07-27 11:18 | MHC.OFFVIS ---
Vital Signs 07/27/25 11:28 Height 5 ft 4 in Weight 107 lb BMI 18.4 Intake Visit Reasons: F/C Right wrist injury 05/01/25 s/p falling Intake Note: Maureen is a 20 year old right hand dominant female who presents today for an ER follow up if right wrist injury, DOI 05/01/25. 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 Today patient reports that she has been wearing the cast for 12 weeks. States she is doing well, however with cast removal she has discomfort in her thumb. No numbness or tingling. Allergies amoxicillin Allergy (Verified 07/27/25 11:28) Rash Penicillins (PCN) Allergy (Verified 07/27/25 11:28) Rash Medication List - Last Reconciled 07/27/25 by Lynn Portillo PA-C No Known Home Meds HPI HPI F/C Right wrist injury 05/01/25 s/p falling: Details: 20-year-old female presents to the office today for an injury she sustained to her right scaphoid at the end of March/beginning of April. She states she fell and it resulted in a scaphoid waist fracture. 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 Today her cast has been removed and she denies pain. Slight stiffness. [facility] Social History (Updated 07/27/25 @ 11:24 by SKYLA Oneal) Patient Tobacco Use Status: Never used Tobacco Current occupational status: student Review of Systems Const All systems reviewed & are unremarkable except as noted in HPI and below Physical Exam Vital Signs: BMI result Body Mass Index 18.4 Const General: cooperative and no acute distress Orientation/consciousness: patient oriented x3 Resp Effort & Inspection: normal respiratory effort and able to speak in complete sentences Cardio Peripheral pulses: Peripheral pulses 2+ throughout Neuro General: patient oriented x3 Extrem Other: Right wrist is normal to inspection no swelling. She has no pain over the anatomical snuffbox or along the distal radius. She can make a full fist and extend all digits. She can perform thumb abduction. Neurovascularly intact. Results Reviewed Results Reviewed: X-rays of the right hand/wrist obtained in the office today and reviewed by me are negative for obvious fracture or deformities. Assessment & Plan Assessment & Plan (1) Injury of right wrist: Code(s): S69.91XA - Unspecified injury of right wrist, hand and finger(s), initial encounter Category: Medical Plan: Patient will discontinue the use of the cast. She can increase activities as tolerated. I did stressed the importance of caution with any type of impact activities. Patient states she isn't involved in sports or contact activities. If there is any concerns going forward she will contact our office otherwise she can follow up as needed. Orders: Orders XR wrist RT min 3V Today M25.531 - Pain in right wrist Coding Level of Care Code New Pt Level 3 (73676) Complex EM visit Add On G2211 Diagnoses Injury of right wrist S69.91XA
[2025-07-27 11:28] VITALS: BMI 18.4
== END 2025-07-27 11:54 | disposition home or self-care (01) ==
LOC: HO.HOS 11:10
PROVIDERS: Visit Provider Physician Assistant
DX: S69.91XA Unspecified injury of right wrist, hand and finger(s), initial encounter (principal)
CPT/HCPCS: 99203

== ENCOUNTER → 2025-07-27 11:13 | Outpatient (BNV) | payer OTHER, SELFPAY | PROVIDERS: Visit Provider Radiology Diagnostic Radiology | DX: M25.531 Pain in right wrist (principal) | CPT/HCPCS: 73110 ==